=== PATIENT | male | born 1955 | race Two or more races ===

== ENCOUNTER 2023-05-16 03:49 | Day surgery (SDC) | payer OTHER ==
[2023-05-15 13:58] VITALS: BMI 21.8
[2023-05-16] MEDS ORDERED: FENTANYL CITRATE/PF 50 MCG/ML VIAL ONE ×2 (12:46→14:49)
[2023-05-16] MEDS ORDERED: PROPOFOL 20 ML ONE ×2 (12:46→15:22)
[2023-05-16] MEDS ORDERED: MIDAZOLAM HCL 2 MG/2 ML SINGLE DOSE VIAL ONE (12:47)
[2023-05-16] MEDS ORDERED: LIDOCAINE HCL 2% JELLY 11 ML TP ONE (13:43)
[2023-05-16] MEDS ORDERED: ceFAZolin SODIUM 1 GM VIAL ONE (14:14)
[2023-05-16] MEDS ORDERED: DEXAMETHASONE SOD PHOSPHATE 4 MG/1 ML VIAL ONE (14:15)
[2023-05-16] MEDS ORDERED: ONDANSETRON 4 MG/2 ML VIAL ONE (14:15)
[2023-05-16] MEDS ORDERED: ceFAZolin SODIUM 1 GM VIAL IVPB ONE (14:17)
[2023-05-16] MEDS ORDERED: GENTAMICIN SO4 80 MG/2 ML VIAL ONE (15:16)
[2023-05-16] MEDS ORDERED: LIDOCAINE HCL 2% JELLY 10 ML CARTRIDGE TP ONE (15:22)
[2023-05-16] MEDS ORDERED: MEPERIDINE HCL 25 MG/ML VIAL ONE (15:33)
[2023-05-16] MEDS ORDERED: MEPERIDINE HCL 25 MG/ML VIAL IVPUSH ONE (15:39)
[2023-05-16] MEDS ORDERED: ONDANSETRON 4 MG/2 ML VIAL IVPUSH PRN (15:39)
[2023-05-16] MEDS ORDERED: LACTATED RINGERS SOLUTION 1,000 ML IV SCH (15:45)
[2023-05-16 17:28] VITALS: RESP 14
[2023-05-16 17:32] VITALS: BP 125/75; PULSE 70
[2023-05-16 17:36] VITALS: TEMP 97.3
[2023-05-25 15:07] LABS: SIZE 7x8 mm (.); URIC ACID 100 % (.); WEIGHT 1550 mg (.)
== END 2023-05-16 18:30 | disposition home or self-care (01) ==
LOC: JASU-SURG 03:49
PROVIDERS: ATTEND Urology
PROC: 0VT08ZZ Resection of Prostate, Via Natural or Artificial Opening Endoscopic (ICD-10-PCS; 2023-05-16)
PROC: 0TCB8ZZ Extirpation of Matter from Bladder, Via Natural or Artificial Opening Endoscopic (ICD-10-PCS; principal; 2023-05-16 13:30)
DX: N40.0 Benign prostatic hyperplasia without lower urinary tract symptoms (principal); N21.0 Calculus in bladder
CPT/HCPCS: 36415; 82360; 88300-TC; 94760